=== PATIENT | male | born 1990 | race Caucasian/White ===

== ENCOUNTER 2017-11-23 13:39 | Emergency (ER) | payer OTHER ==
[~2017-11-23] VITALS: Ht 185.4 cm; Wt 93.0 kg
[2017-11-23 13:41] VITALS: BP 159/98; Ht 185.4 cm; Wt 93.0 kg
== END 2017-11-23 14:15 | disposition other institution (70) ==
LOC: ED 13:39
DX: Z02.89 Encounter for other administrative examinations (principal); M54.9 Dorsalgia, unspecified